=== PATIENT | male | born 1935 | race Caucasian/White ===

== ENCOUNTER → 2017-12-10 | Outpatient (CLI) | payer OTHER ==
[~2017-12-10] MED LIST: AMLO5TAB4 PO; FINA5TAB11 PO; LORA2TAB95 PO; MECL-102 PO; TAMS0.4C34 PO; TERA2CAP4 PO
== END | disposition home or self-care (01) ==
LOC: RAD 09:07
DX: M79.89 Other specified soft tissue disorders (principal); R60.9 Edema, unspecified

== ENCOUNTER 2018-03-03 11:52 | Emergency (ER) | payer OTHER ==
[~2018-03-03] VITALS: Ht 172.7 cm; Wt 79.4 kg
[2018-03-03] MEDS ORDERED: NEOMY/BACITRA/POLYMYXIN B OINT UD PACKET TP ONE ×2 (12:13→12:15)
--- NOTE | 2018-03-03 12:25 | NUR ---
Patient discharged to home in stable conditon. Written and verbal after care instructions given. Patient verbalizes understanding of instructions.Pt left ER w/ steady gait.
[2018-03-03 12:26] VITALS: BP 144/78
== END 2018-03-03 12:27 | disposition home or self-care (01) ==
LOC: ER 11:52
DX: S90.821A Blister (nonthermal), right foot, initial encounter (principal); B35.3 Tinea pedis; I10 Essential (primary) hypertension; K21.9 Gastro-esophageal reflux disease without esophagitis; X58.XXXA Exposure to other specified factors, initial encounter; Y93.89 Activity, other specified; Y92.89 Other specified places as the place of occurrence of the external cause; Y99.8 Other external cause status
CPT/HCPCS: A4663

== ENCOUNTER 2018-05-22 08:47 | Emergency (ER) | payer OTHER ==
[~2018-05-22] VITALS: Ht 172.7 cm; Wt 75.7 kg
--- NOTE | 2018-05-22 09:20 | NUR ---
PT IS IN ROOM #2A. DR CERDA EVALUATED THE PT.
[2018-05-22 09:35] LABS: *BILIRUBIN,URIN 1+ (NEGATIVE); *BLOOD, URINE NEGATIVE (NEGATIVE); *CLARITY,URINE CLEAR (CLEAR); *COLOR,URINE YELLOW (YELLOW); *KETONES,URINE TRACE (NEGATIVE); *UROBILINOGEN,URINE 0.2 E.U./dl (NORMAL); LEUKOCYTE ESTERASE ,URINE NEGATIVE (NEGATIVE); NITRITE, URINE NEGATIVE (NEGATIVE); PH,URINE 8.5 (5.0-8.0); UGLUCOSE NEGATIVE (NEGATIVE)
[2018-05-22 09:40] LABS: RBC,URINE NONE SEEN /HPF (0-3); WBC,URINE 0-3 /HPF (0-3)
[2018-05-22 09:41] LABS: BACTERIA,URINE FEW /HPF (NONE SEEN); SQUAMOUS EPITHELIAL CELL,UR FEW /HPF (NONE SEEN); URINE AMORPHOUS PHOSPHATES MODERATE /HPF
--- NOTE | 2018-05-22 10:07 | NUR ---
PT WAS D/C'd TO HOME AFTER DR CERDA EVALUATION. D/C INSTRUCTIONS GIVEN TO THE PT.
[2018-05-22 10:08] VITALS: BP 145/78
== END 2018-05-22 10:09 | disposition home or self-care (01) ==
LOC: ER 08:47
DX: N40.0 Benign prostatic hyperplasia without lower urinary tract symptoms (principal); I10 Essential (primary) hypertension; K21.9 Gastro-esophageal reflux disease without esophagitis; F12.10 Cannabis abuse, uncomplicated; Z79.899 Other long term (current) drug therapy
CPT/HCPCS: A4663

== ENCOUNTER 2018-08-14 12:32 | Emergency (ER) | payer OTHER ==
[~2018-08-14] VITALS: Ht 172.7 cm; Wt 74.8 kg
--- NOTE | 2018-08-14 12:52 | NUR ---
PATIENT BEING SEEN BY DOCTOR SUSAN.
--- NOTE | 2018-08-14 12:58 | NUR ---
PATIENT SAYS THERE IS PAIN ON RIGHT RIB CAGE FROM THE HANDLE OF CAR DOOR HITTING HIM.
[2018-08-14] MEDS ORDERED: IBUPROFEN 800 MG TABLET PO ONE (13:00)
[2018-08-14] MEDS ORDERED: IBUPROFEN 800 MG TABLET ONE (13:14)
[2018-08-14 13:22] LABS: CARBON DIOXIDE 28 mmol/L (21-32); CHLORIDE 102 mmol/L (98-107); GLUCOSE 94 mg/dL (74-106); POTASSIUM 3.9 mmol/L (3.5-5.1); UREA NITROGEN, BLOOD 20 mg/dL (7-18)
--- NOTE | 2018-08-14 13:23 | NUR ---
PATIENT PICKED UP TO GO TO RADIOLOGY DEPARTMENT.
[2018-08-14 13:29] LABS: ALANINE AMINOTRANSFERASE 16 U/L (16-63); ALKALINE PHOSPHATASE 78 U/L (50-136); ASPARTATE AMINOTRANSFERASE 9 U/L (15-37); BASOPHILS # (AUTO) 0.1 K/uL (0.0-8.0); BASOPHILS % (AUTO) 1.1 % (0.0-2.0); BILIRUBIN,DIRECT 0.2 mg/dL (0.0-0.2); BILIRUBIN,TOTAL 0.5 mg/dL (0.2-1.0); EOSINOPHILS # (AUTO) 0.2 K/uL (0.0-0.7); EOSINOPHILS % (AUTO) 2.7 % (0.0-7.0); HEMATOCRIT 42.6 % (36.7-47.1); HEMOGLOBIN 14.5 g/dL (12.5-16.3); LIPASE 103 U/L (73-393); LYMPHOCYTES # (AUTO) 1.3 K/uL (20.0-40.0); MEAN CORPUSCULAR HEMOGLOBIN 29.4 uug (23.8-33.4); MEAN CORPUSCULAR HGB CONC 34 g/dL (32.5-36.3); MEAN CORPUSCULAR VOLUME 86.8 fL (73.0-96.2); MONOCYTES # (AUTO) 0.7 K/uL (2.0-10.0); MONOCYTES % (AUTO) 9.5 % (0.0-11.0); NEUTROPHILS # (AUTO) 4.8 K/uL (1.8-8.9); NEUTROPHILS % (AUTO) 68.7 % (38.5-71.5); RED BLOOD CELL COUNT(AUTO) 4.91 MIL/uL (4.06-5.63); TOTAL PROTEIN, SERUM 6.2 g/dL (6.4-8.2)
[2018-08-14 13:31] LABS: PLATELET COUNT (AUTO) 169 K/uL (152-348)
--- NOTE | 2018-08-14 14:09 | NUR ---
COPY OF CT SCAN GIVEN TO PATIENT TO TAKE TO HIS PRIMARY DOCTOR. DOCTOR SUSAN SPOKE TO PATIENT REGARDING RESULTS AND PATIENT GIVEN DISCHARGE INSTRUCTIONS AND SIGNED. DAUGHTER AT BEDSIDE WELL .
== END 2018-08-14 14:18 | disposition home or self-care (01) ==
LOC: ER 12:32
DX: R07.89 Other chest pain (principal); I10 Essential (primary) hypertension; K21.9 Gastro-esophageal reflux disease without esophagitis; Z79.899 Other long term (current) drug therapy
CPT/HCPCS: 36415; 70030-TC; 71250; 83690; 85025; 93005; A4663

== ENCOUNTER 2018-09-20 14:56 | Emergency (ER) | payer OTHER ==
[~2018-09-20] VITALS: Ht 172.7 cm; Wt 63.5 kg
--- NOTE | 2018-09-20 15:11 | NUR ---
Patient discharged to home in stable conditon. Written and verbal after care instructions given to patient. Patient verbalizes understanding of instructions.
== END 2018-09-20 15:12 | disposition home or self-care (01) ==
LOC: ER 14:57
DX: H10.9 Unspecified conjunctivitis (principal); I10 Essential (primary) hypertension; K21.9 Gastro-esophageal reflux disease without esophagitis; Z79.899 Other long term (current) drug therapy
CPT/HCPCS: A4663

== ENCOUNTER 2018-10-27 10:47 | Emergency (ER) | payer OTHER ==
[~2018-10-27] VITALS: Ht 172.7 cm; Wt 54.4 kg
--- NOTE | 2018-10-27 11:12 | NUR ---
Dr lyman at the bedside for MSE.
--- NOTE | 2018-10-27 11:19 | NUR ---
Patient discharged to home in stable conditon. Written and verbal after care instructions given. Patient verbalizes understanding of instructions.
[2018-10-27 11:20] VITALS: BP 145/70
== END 2018-10-27 11:22 | disposition home or self-care (01) ==
LOC: ER 10:47
DX: S91.301A Unspecified open wound, right foot, initial encounter (principal); L08.9 Local infection of the skin and subcutaneous tissue, unspecified; I10 Essential (primary) hypertension; K21.9 Gastro-esophageal reflux disease without esophagitis; Z79.899 Other long term (current) drug therapy; X58.XXXA Exposure to other specified factors, initial encounter; Y93.89 Activity, other specified; Y92.89 Other specified places as the place of occurrence of the external cause; Y99.8 Other external cause status
CPT/HCPCS: A4663

== ENCOUNTER 2018-12-12 09:35 | Emergency (ER) | payer OTHER ==
[~2018-12-12] VITALS: Ht 185.4 cm; Wt 80.3 kg
--- NOTE | 2018-12-12 11:00 | NUR ---
PATIENT WAS MSE BY DR DAVIS IN ROOM 05A.
--- NOTE | 2018-12-12 11:08 | NUR ---
Patient discharged to home in stable conditon. Written and verbal after care instructions given. Patient verbalizes understanding of instructions.
[2018-12-12 11:12] VITALS: BP 145/81
== END 2018-12-12 11:16 | disposition home or self-care (01) ==
LOC: ER 09:35
DX: L98.9 Disorder of the skin and subcutaneous tissue, unspecified (principal); M47.892 Other spondylosis, cervical region; I10 Essential (primary) hypertension; K21.9 Gastro-esophageal reflux disease without esophagitis; Z79.899 Other long term (current) drug therapy
CPT/HCPCS: A4663

== ENCOUNTER 2020-07-10 10:57 | Inpatient (IN) | payer OTHER ==
[~2020-07-10] VITALS: Ht 175.3 cm; Wt 84.4 kg
[~2020-07-10 10:57] MED LIST changes: -MECL-102 PO; +MECL-159 PO
--- NOTE | 2020-07-10 10:57 | NUR ---
PT WALKED INTO ER CO LLE EDEMA/PAIN AND LEFT HIP PAIN, PT DENIES ANY TRAUMA. PT AMBULATORY AT HOME. HX OF SKIN GRAFT FROM LLE TO THE LEFT HEEL 3 YRS AGO AT [facility], SECONDARY TO SKIN CANCER PER PT. PT A-FIB WITH RVR ON MONITOR, DENEIS ANY CP OR PALPITATION OR SOB. PT ALSO DENEIS ANY HX OF CARDIAC ISSUES, EXCEPT ONE TIME THAT HIS OWN PMD, DR. VANG, TOLD HIM THAT HE HAS RAPID HEART RATE YEARS AGO.
--- NOTE | 2020-07-10 11:29 | NUR ---
PT'S DAUGHTER INSTRUCTED TO BRING LIST OF PT MEDS AND DOSAGES PHI. PT UNABLE TO RECALL HOME MEDS.
[2020-07-10] MEDS ORDERED: IV NORMAL SALINE 500 ML BAG IV ONE (11:30)
[2020-07-10] MEDS ORDERED: DILTIAZEM HCL 25 MG IV IV ONE (11:30)
[2020-07-10] MEDS ORDERED: DILTIAZEM HCL 25 MG IV ONE (11:31)
[2020-07-10 11:48] LABS: BASOPHILS # (AUTO) 0.1 K/uL (0.0-8.0); BASOPHILS % (AUTO) 1.3 % (0.0-2.0); EOSINOPHILS # (AUTO) 0.1 K/uL (0.0-0.7); EOSINOPHILS % (AUTO) 2.2 % (0.0-7.0); HEMATOCRIT 41.2 % (36.7-47.1); HEMOGLOBIN 13.4 g/dL (12.5-16.3); LYMPHOCYTES # (AUTO) 0.9 K/uL (20.0-40.0); LYMPHOCYTES % (AUTO) 14.7 % (20.5-51.5); MEAN CORPUSCULAR HEMOGLOBIN 25.7 uug (23.8-33.4); MEAN CORPUSCULAR HGB CONC 33 g/dL (32.5-36.3); MEAN CORPUSCULAR VOLUME 78.6 fL (73.0-96.2); MONOCYTES # (AUTO) 0.5 K/uL (2.0-10.0); MONOCYTES % (AUTO) 8.9 % (0.0-11.0); NEUTROPHILS # (AUTO) 4.3 K/uL (1.8-8.9); NEUTROPHILS % (AUTO) 72.9 % (38.5-71.5); PLATELET COUNT (AUTO) 271 K/uL (152-348); RED BLOOD CELL COUNT(AUTO) 5.24 MIL/uL (4.06-5.63); WHITE BLOOD COUNT (AUTO) 5.9 K/uL (3.6-10.2)
[2020-07-10 11:59] LABS: CREATININE 0.9 mg/dL (0.6-1.3)
[2020-07-10 12:01] LABS: POTASSIUM 5.1 mmol/L (3.5-5.1)
[2020-07-10 12:05] LABS: BILIRUBIN,DIRECT 0.1 mg/dL (0.0-0.2); BILIRUBIN,TOTAL 0.7 mg/dL (0.2-1.0); TOTAL PROTEIN, SERUM 6.3 g/dL (6.4-8.2)
[2020-07-10] MEDS ORDERED: DILTIAZEM HCL IV 125 MG in IV DEXTROSE 5% 100 ML IV ONE (12:15)
--- NOTE | 2020-07-10 12:30 | NUR ---
PT HAD LUNCH WITH [facility].
[2020-07-10] MEDS ORDERED: ALLO100T PO (13:27)
[2020-07-10] MEDS ORDERED: MELO-105 PO (13:27)
[2020-07-10] MEDS ORDERED: ROPI0.5T4 PO ×2 (13:27→15:03)
[2020-07-10] MEDS ORDERED: CHOL200010 PEG (13:30)
[2020-07-10] MEDS ORDERED: RIVA10TA PO (13:30)
--- NOTE | 2020-07-10 13:30 | NUR ---
PT CO CHRONIC LEFT HIP/THIGH PAIN REQUESTING PAIN MED, MD NOTIFIED.
[2020-07-10] MEDS ORDERED: ONDANSETRON 4 MG/2 ML VIAL IV ONE (13:45)
[2020-07-10] MEDS ORDERED: HYDROMORPHONE 1 MG/1 ML DISP.SYRIN IV ONE (13:45)
[2020-07-10] MEDS ORDERED: ONDANSETRON 4 MG/2 ML VIAL ONE (13:56)
[2020-07-10] MEDS ORDERED: HYDROMORPHONE 1 MG/1 ML DISP.SYRIN ONE (13:56)
[2020-07-10] MEDS ORDERED: ESCI10TA PO (14:00)
[2020-07-10] MEDS ORDERED: LEVO100T10 PO (14:00)
--- NOTE | 2020-07-10 14:20 | NUR ---
transfered pt to floor instable condition.
--- NOTE | 2020-07-10 14:30 | NUR ---
Admitted patient from emergency department with the admitting diagnosis of A-fib with RVR. Patient is alert and oriented x 3, pleasant and cooperative upon admission , Farsi speaking but can understand a little Dominican, denies of any pain. Patient has past history of rapid heart rate, vertigo, chronic back pain, spondylitis, skin cancer. IV access on the left wrist. Patient on Cardizem drip on 1 mg/hr. Seen and examined by Vivek Heard RETAIL REPRESENTATIVE at bedside and order for Lasix one time dose IV. Swollen right lower leg noted. Urine sample collected. Admission protocol rendered. Still A-fib on monitor.
[2020-07-10] MEDS ORDERED: ACETAMINOPHEN 325 MG TABLET PO PRN (15:15)
[2020-07-10] MEDS ORDERED: ONDANSETRON 4 MG/2 ML VIAL IV PRN (15:15)
[2020-07-10] MEDS ORDERED: MORPHINE SULFATE 2 MG/1 ML DISP.SYRIN IV PRN (15:15)
[2020-07-10] MEDS ORDERED: Z GUARD REMEDY PASTE 57 GM TUBE TOP PRN (15:15)
[2020-07-10] MEDS ORDERED: DILTIAZEM HCL IV 125 MG in IV NORMAL SALINE 100 ML IV PRN (15:15)
[2020-07-10] MEDS ORDERED: MAGNESIUM HYDROXIDE 30 ML LIQUID UDC PO PRN (15:15)
[2020-07-10 15:37] VITALS: BP 125/66
[2020-07-10] MEDS ORDERED: FUROSEMIDE 40 MG/4 ML VIAL IV ONE (16:00)
[2020-07-10 17:29] LABS: *BILIRUBIN,URIN NEGATIVE (NEGATIVE); *BLOOD, URINE NEGATIVE (NEGATIVE); *CLARITY,URINE CLEAR (CLEAR); *COLOR,URINE LIGHT YELLOW (YELLOW); *KETONES,URINE NEGATIVE (NEGATIVE); *UROBILINOGEN,URINE 0.2 E.U./dl (NORMAL); LEUKOCYTE ESTERASE ,URINE NEGATIVE (NEGATIVE); NITRITE, URINE NEGATIVE (NEGATIVE); UGLUCOSE NEGATIVE (NEGATIVE)
[2020-07-10 20:00] VITALS: BP 109/65
--- NOTE | 2020-07-10 20:00 | NUR ---
Received patient sitting in the chair. AAOx4. In no acute distress. Denies any pain or SOB. IV site on left hand intact and patent. Cardizem drip infusing at 5mg/hr. A fib. on tele at 100/min. Needs assessed and attended to. Safety measure initiated and call bruno within reached. Continue to monitor.
[2020-07-10] MEDS: TERAZOSIN 1 MG CAPSULE PO SCH (20:07)
[2020-07-10] MEDS: TEMAZEPAM 15 MG CAPSULE PO PRN (20:07)
[2020-07-10 20:37] VITALS: BP 109/65
[2020-07-10] MEDS: HYDROCODONE/APAP 5-325MG TABLET PO PRN (23:41)
[2020-07-11] VITALS: BP 118/75
--- NOTE | 2020-07-11 | NUR ---
Pt asleep at this time, but easily arouse to verbal stimuli. [place] 5 325mg 1 tab PO given for complain of right thigh pain. Remains A fib on tele at 104/min. Cardizem drip infusing at 5mg/hr. Denies any SOB. Continue to monitor.
[2020-07-11 00:22] VITALS: BP 118/75
[2020-07-11 04:27] VITALS: BP 99/50
--- NOTE | 2020-07-11 06:15 | NUR ---
Pt slept well last night. No further complain of pain on right thigh. On continuos Cardizem drip at 5mg/hr. A. Fib on tele at 101/min. Denies any chest pain or SOB. Needs attended to and met/ Safety measure maintained and call bruno within reached.
[2020-07-11 07:06] LABS: BASOPHILS % (AUTO) 0.7 % (0.0-2.0); EOSINOPHILS # (AUTO) 0.2 K/uL (0.0-0.7); EOSINOPHILS % (AUTO) 2.9 % (0.0-7.0); HEMATOCRIT 34.1 % (36.7-47.1); HEMOGLOBIN 11.1 g/dL (12.5-16.3); LYMPHOCYTES % (AUTO) 17.7 % (20.5-51.5); MEAN CORPUSCULAR HGB CONC 33 g/dL (32.5-36.3); MEAN CORPUSCULAR VOLUME 79.5 fL (73.0-96.2); MONOCYTES # (AUTO) 0.7 K/uL (2.0-10.0); MONOCYTES % (AUTO) 12.7 % (0.0-11.0); NEUTROPHILS # (AUTO) 3.6 K/uL (1.8-8.9); PLATELET COUNT (AUTO) 230 K/uL (152-348); RED BLOOD CELL COUNT(AUTO) 4.29 MIL/uL (4.06-5.63); WHITE BLOOD COUNT (AUTO) 5.4 K/uL (3.6-10.2)
[2020-07-11 07:18] LABS: BILIRUBIN,TOTAL 0.5 mg/dL (0.2-1.0); CREATININE 1.1 mg/dL (0.6-1.3); PHOSPHOROUS 4.3 mg/dL (2.5-4.9); POTASSIUM 3.9 mmol/L (3.5-5.1); TOTAL PROTEIN, SERUM 5.2 g/dL (6.4-8.2)
[2020-07-11] MEDS: LEVOTHYROXINE SODIUM 100 MCG TABLET PO SCH (07:21)
[2020-07-11 07:30] LABS: THYROID STIMULATING HORMONE 3.287 mIU/mL (0.358-3.740)
[2020-07-11 08:00] VITALS: BP 100/55
[2020-07-11] MEDS: ALLOPURINOL 100 MG TABLET PO SCH (08:45)
[2020-07-11] MEDS: FINASTERIDE 5 MG TABLET PO SCH (08:45)
[2020-07-11] MEDS: CHOLECALCIFEROL 1,000 UNIT TABLET PEG SCH (08:45)
[2020-07-11] MEDS: ESCITALOPRAM OXALATE 10 MG TABLET PO SCH (08:45)
[2020-07-11] MEDS: HYDROCODONE/APAP 5-325MG TABLET PO PRN (08:47)
[2020-07-11] MEDS ORDERED: MELOXICAM 7.5 MG TABLET PO SCH (09:00)
[2020-07-11] MEDS ORDERED: AMLODIPINE 5 MG TABLET PO SCH ×2 (09:00)
--- NOTE | 2020-07-11 09:00 | NUR ---
Patient in bed, alert and verbally responsive. Cooperative upon assessment on oxygen via NC at 2 L as ordered saturating at 97%.
[2020-07-11] MEDS: DILTIAZEM HCL CD 120 MG CAP.SR.24H PO SCH (10:31)
[2020-07-11] MEDS ORDERED: FUROSEMIDE 20 MG/2 ML VIAL IV ONE (10:45)
--- NOTE | 2020-07-11 12:00 | NUR ---
Discontinue Cardizem drip 5mg/hr per MD order and patient started on Cardizem 120mg PO. Seen and examined by Dr. Guthrie. Covid PCR result is negative.
[2020-07-11] MEDS: ropiniROLE 0.5 MG TABLET PO SCH ×2 (12:03→16:30)
[2020-07-11 15:13] VITALS: BP 97/45
[2020-07-11] MEDS: LORAZEPAM 1 MG TABLET PO PRN (16:30)
[2020-07-11] MEDS: RIVAROXABAN 10 MG TABLET PO SCH (17:30)
[2020-07-11] MEDS ORDERED: RIVAROXABAN 10 MG TABLET PO SCH (18:00)
[2020-07-11 20:30] VITALS: BP 100/47
[2020-07-11] MEDS: TERAZOSIN 1 MG CAPSULE PO SCH (20:36)
[2020-07-12 00:15] VITALS: BP 103/56
[2020-07-12 04:33] VITALS: BP 126/71
[2020-07-12] MEDS: LEVOTHYROXINE SODIUM 100 MCG TABLET PO SCH (06:24)
--- NOTE | 2020-07-12 06:33 | NUR ---
Pt stable throughout the night. Denies CP/SOB. On 2L, tolerating well. Pt on tele monitor, ST 114. Comfort care and needs attended. Safety measures in place. Will endorse to oncoming nurse.
[2020-07-12 07:00] LABS: BASOPHILS % (AUTO) 0.7 % (0.0-2.0); EOSINOPHILS # (AUTO) 0.1 K/uL (0.0-0.7); EOSINOPHILS % (AUTO) 1.9 % (0.0-7.0); HEMATOCRIT 35.7 % (36.7-47.1); HEMOGLOBIN 11.4 g/dL (12.5-16.3); LYMPHOCYTES # (AUTO) 0.7 K/uL (20.0-40.0); LYMPHOCYTES % (AUTO) 14.6 % (20.5-51.5); MEAN CORPUSCULAR HEMOGLOBIN 25.2 uug (23.8-33.4); MEAN CORPUSCULAR HGB CONC 32 g/dL (32.5-36.3); MONOCYTES # (AUTO) 0.5 K/uL (2.0-10.0); MONOCYTES % (AUTO) 9.2 % (0.0-11.0); NEUTROPHILS # (AUTO) 3.8 K/uL (1.8-8.9); NEUTROPHILS % (AUTO) 73.6 % (38.5-71.5); PLATELET COUNT (AUTO) 200 K/uL (152-348); RED BLOOD CELL COUNT(AUTO) 4.52 MIL/uL (4.06-5.63); WHITE BLOOD COUNT (AUTO) 5.1 K/uL (3.6-10.2)
[2020-07-12 07:06] LABS: CREATININE 0.8 mg/dL (0.6-1.3)
[2020-07-12 07:55] VITALS: BP 121/65
--- NOTE | 2020-07-12 07:59 | NUR ---
Attempted to taper his oxygen. Pt desaturated to 88% on r/a at rest. Put pt back on 2 lit n/c with sat of 96%.
--- NOTE | 2020-07-12 08:30 | NUR ---
Discussed with pt and MAINTENANCE ADVISOR to limit fluid. Aspiration and fall precaution implemented. IV on right hand intact and flushed without resistance. Pt denies any c/o pain. Pt c/o constipation. Dr torres to order Lactulose.
[2020-07-12] MEDS: ropiniROLE 0.5 MG TABLET PO SCH ×3 (08:34→17:16)
[2020-07-12] MEDS: FINASTERIDE 5 MG TABLET PO SCH (08:34)
[2020-07-12] MEDS: CHOLECALCIFEROL 1,000 UNIT TABLET PEG SCH (08:34)
[2020-07-12] MEDS: ESCITALOPRAM OXALATE 10 MG TABLET PO SCH (08:34)
[2020-07-12] MEDS: ALLOPURINOL 100 MG TABLET PO SCH (08:35)
[2020-07-12] MEDS: DILTIAZEM HCL CD 120 MG CAP.SR.24H PO SCH (08:35)
[2020-07-12] MEDS ORDERED: FUROSEMIDE 20 MG/2 ML VIAL IV ONE (09:00)
[2020-07-12] MEDS ORDERED: LACTULOSE 20 G/30 ML LIQUID UDC PO ONE (09:00)
[2020-07-12 11:22] VITALS: BP 123/63
--- NOTE | 2020-07-12 14:00 | NUR ---
Pt had large bm. Lactulose effective.
--- NOTE | 2020-07-12 14:44 | NUR ---
Dr sheridan saw pt earlier. new orders received and carried out. Pt tolerated Lower extremity CT awaiting result. Right leg edema +2, left leg +1.
[2020-07-12 15:21] VITALS: BP 124/52
--- NOTE | 2020-07-12 16:07 | NUR ---
From face sheets contact. Dialed [phone] for rickey torres -spouse to get for consent for possible EGD/ COLONOSCOPY with [employer] phone laborer car barn # [phone] Camilla. No answering machine and nobody answered phone. Attempted to call for Zunilda [facility] notes [phone] no answer and no answering machine available. Attempted to call [phone] Diana lang's cousin spoke with cousins left message to call back at [phone] and that were trying to get consent. Awaiting call back. Addendum: 07/12/20 at 0973 by CONY MCQUEEN RN WRONG PATIENT
[2020-07-12] MEDS: RIVAROXABAN 10 MG TABLET PO SCH (17:17)
--- NOTE | 2020-07-12 20:00 | NUR ---
Received patient lying in bed. AAOx4. In no acute distress. Denies any pain or SOB. IV site on left hand and right wrist intact and patent. A fib. on tele at 84/min. Safety measure initiated and call bruno within reached.
[2020-07-12 20:23] VITALS: BP 94/42
[2020-07-12] MEDS: TERAZOSIN 1 MG CAPSULE PO SCH (21:00)
[2020-07-13 00:28] VITALS: BP 127/65
[2020-07-13 04:45] VITALS: BP 129/65
[2020-07-13 06:08] LABS: ABG BASE EXCESS 3.2 mmol/L; ABG HCO3 28.6 mmol/L; ABG PCO2 47.2 mmHg (35.0-45.0); ABG PH 7.401 (7.350-7.450); ABG SITE RIGHT RADIAL; ABG TOTAL HEMOGLOBIN 11.8 G/dL (13.5-18.0); COHb 1.2 % (0.5-1.5); MetHb 0.1 % (0.0-1.5); O2Hb 88.6 % (94.0-97.0); VENT MODE ROOM AIR
--- NOTE | 2020-07-13 06:12 | NUR ---
ABG WAS DONE ON ROOM AIR. Parrish LONG RCP Addendum: 07/13/20 at 0613 by NILAY LONG RT Amended: Links added.
--- NOTE | 2020-07-13 06:18 | NUR ---
Patient slept well last night. Denies any pain or SOB. O2 at 2LPM via NC in place. O2 sat bet 91-97%. Patient de saturate to 88% without O2 in place. Controlled A. fib on tele at 96/min. NPO status. Will have CT abd. today. Needs attended to and met. Safety measure maintained and call bruno within reached.
[2020-07-13] MEDS: LEVOTHYROXINE SODIUM 100 MCG TABLET PO SCH (07:00)
[2020-07-13 07:30] LABS: BASOPHILS % (AUTO) 0.5 % (0.0-2.0); EOSINOPHILS # (AUTO) 0.1 K/uL (0.0-0.7); EOSINOPHILS % (AUTO) 2.1 % (0.0-7.0); HEMATOCRIT 33.9 % (36.7-47.1); LYMPHOCYTES # (AUTO) 0.8 K/uL (20.0-40.0); LYMPHOCYTES % (AUTO) 15.2 % (20.5-51.5); MEAN CORPUSCULAR HEMOGLOBIN 25.6 uug (23.8-33.4); MEAN CORPUSCULAR HGB CONC 33 g/dL (32.5-36.3); MEAN CORPUSCULAR VOLUME 78.9 fL (73.0-96.2); MONOCYTES # (AUTO) 0.5 K/uL (2.0-10.0); MONOCYTES % (AUTO) 8.9 % (0.0-11.0); NEUTROPHILS # (AUTO) 3.8 K/uL (1.8-8.9); NEUTROPHILS % (AUTO) 73.3 % (38.5-71.5); PLATELET COUNT (AUTO) 221 K/uL (152-348); RED BLOOD CELL COUNT(AUTO) 4.29 MIL/uL (4.06-5.63); WHITE BLOOD COUNT (AUTO) 5.2 K/uL (3.6-10.2)
[2020-07-13 07:34] LABS: CREATININE 0.8 mg/dL (0.6-1.3); MAGNESIUM 2.1 mg/dL (1.8-2.4); PHOSPHOROUS 3.4 mg/dL (2.5-4.9); POTASSIUM 3.6 mmol/L (3.5-5.1)
--- NOTE | 2020-07-13 08:00 | NUR ---
DAUGHTER MARQUEZ NOTIFIED OF NEED FOR CONSENT FOR CT ABDOMEN WITH CONTRAST. PHONE CONSENT GIVEN ON THE PHONE
[2020-07-13] MEDS: CHOLECALCIFEROL 1,000 UNIT TABLET PEG SCH (08:01)
[2020-07-13] MEDS: ESCITALOPRAM OXALATE 10 MG TABLET PO SCH (08:01)
[2020-07-13] MEDS: ropiniROLE 0.5 MG TABLET PO SCH ×3 (08:01→17:02)
[2020-07-13] MEDS: ALLOPURINOL 100 MG TABLET PO SCH (08:06)
[2020-07-13] MEDS: FINASTERIDE 5 MG TABLET PO SCH (08:06)
[2020-07-13] MEDS: DILTIAZEM HCL CD 120 MG CAP.SR.24H PO SCH (08:06)
[2020-07-13] MEDS: LORAZEPAM 1 MG TABLET PO PRN ×2 (08:25→17:30)
[2020-07-13] MEDS ORDERED: SWABABLE VALVE TRANSFER SET EA MC ONE ×2 (08:30→17:50)
[2020-07-13] MEDS ORDERED: IV NORMAL SALINE 250 ML IV ONE ×2 (08:31→17:51)
[2020-07-13] MEDS ORDERED: IOHEXOL 300MG/ML 100 ML INFUS..BTL ONE ×2 (08:31→17:51)
--- NOTE | 2020-07-13 08:53 | NUR ---
down to nuclear meds for CT ABDOMEN WITH CONTRAST
[2020-07-13] MEDS ORDERED: POTASSIUM CHLORIDE 20 MEQ POWDER PACKET PO ONE (09:15)
[2020-07-13] MEDS ORDERED: FUROSEMIDE 20 MG/2 ML VIAL IV ONE (09:45)
[2020-07-13] MEDS ORDERED: IV NS 1000 ML 1,000 ML IV ONE (10:30)
--- NOTE | 2020-07-13 12:00 | NUR ---
Patient was seen by Hospitalist for Nephro, Cardio, and Pulmo. See notes.
--- NOTE | 2020-07-13 15:59 | NUR ---
Patient kept on NPO for CT Angio. Patient remains controlled Afib. Continue oxygen with 2 LPM via Nasal Cannula saturating at 96%. Closely monitored for fall.
[2020-07-13 16:27] VITALS: BP 126/60
[2020-07-13] MEDS ORDERED: IOHEXOL 350 100 ML INFUS..BTL ONE (17:51)
[2020-07-13 18:28] LABS: IRON, SERUM 14 ug/dL (50-175)
[2020-07-13 18:55] LABS: FERRITIN 37 ng/mL (26-388); LACTATE DEHYDROGENASE 161 U/L (85-227)
[2020-07-13 20:00] VITALS: BP 140/84
[2020-07-13] MEDS: TEMAZEPAM 15 MG CAPSULE PO PRN (20:01)
[2020-07-13] MEDS: ENOXAPARIN SODIUM 80 MG/0.8 ML DISP.SYRIN SQ SCH (20:02)
[2020-07-13] MEDS: TERAZOSIN 1 MG CAPSULE PO SCH (20:08)
[2020-07-14] VITALS: BP 128/80
[2020-07-14 04:00] VITALS: BP 129/76
[2020-07-14] MEDS: LEVOTHYROXINE SODIUM 100 MCG TABLET PO SCH (06:09)
[2020-07-14 06:23] LABS: BASOPHILS % (AUTO) 0.7 % (0.0-2.0); EOSINOPHILS # (AUTO) 0.1 K/uL (0.0-0.7); EOSINOPHILS % (AUTO) 2.2 % (0.0-7.0); HEMOGLOBIN 11.9 g/dL (12.5-16.3); LYMPHOCYTES # (AUTO) 0.6 K/uL (20.0-40.0); LYMPHOCYTES % (AUTO) 13.6 % (20.5-51.5); MEAN CORPUSCULAR HEMOGLOBIN 25.3 uug (23.8-33.4); MEAN CORPUSCULAR HGB CONC 32 g/dL (32.5-36.3); MEAN CORPUSCULAR VOLUME 78.5 fL (73.0-96.2); MONOCYTES # (AUTO) 0.4 K/uL (2.0-10.0); MONOCYTES % (AUTO) 10.4 % (0.0-11.0); NEUTROPHILS # (AUTO) 3.1 K/uL (1.8-8.9); NEUTROPHILS % (AUTO) 73.1 % (38.5-71.5); PLATELET COUNT (AUTO) 216 K/uL (152-348); RED BLOOD CELL COUNT(AUTO) 4.71 MIL/uL (4.06-5.63); WHITE BLOOD COUNT (AUTO) 4.3 K/uL (3.6-10.2)
[2020-07-14 06:51] LABS: CREATININE 0.7 mg/dL (0.6-1.3); MAGNESIUM 2.1 mg/dL (1.8-2.4); POTASSIUM 3.7 mmol/L (3.5-5.1)
--- NOTE | 2020-07-14 06:54 | NUR ---
Pt slept well overnight; pt is afib rvr on activity, otherwise rate in the 90s and low 100s when asleep; continue to monitor; continue plan of care.
--- NOTE | 2020-07-14 07:22 | NUR ---
Received patient in bed, resting. Oxygen is at 2 LPM. Controlled AFib on monitor. Will continue to monitor as a telemetry status.
--- NOTE | 2020-07-14 07:30 | NUR ---
Patient received in bed sleeping. Patient is comfortable, no pain noted. On monitor patient on controlled AFib at 91 BPM. Patient is comfortable on oxygen at 2 LPM. Will continue to monitor.
[2020-07-14] MEDS ORDERED: ACETAzolamide 250 MG TABLET PO ONE (07:45)
[2020-07-14] MEDS ORDERED: FUROSEMIDE 20 MG/2 ML VIAL IV ONE (08:00)
[2020-07-14] MEDS: CHOLECALCIFEROL 1,000 UNIT TABLET PEG SCH (08:14)
[2020-07-14] MEDS: ropiniROLE 0.5 MG TABLET PO SCH ×3 (08:14→17:33)
[2020-07-14] MEDS: FINASTERIDE 5 MG TABLET PO SCH (08:14)
[2020-07-14] MEDS: ESCITALOPRAM OXALATE 10 MG TABLET PO SCH (08:15)
[2020-07-14] MEDS: ALLOPURINOL 100 MG TABLET PO SCH (08:15)
[2020-07-14] MEDS: ENOXAPARIN SODIUM 80 MG/0.8 ML DISP.SYRIN SQ SCH (08:16)
[2020-07-14] MEDS: DILTIAZEM HCL CD 120 MG CAP.SR.24H PO SCH (08:21)
[2020-07-14 08:38] VITALS: BP 153/83
[2020-07-14] MEDS ORDERED: POTASSIUM CHLORIDE 20 MEQ TAB.PRT.SR PO ONE (09:00)
[2020-07-14] MEDS: FERROUS SULFATE 325 MG TABEC PO SCH ×2 (13:22→20:46)
--- NOTE | 2020-07-14 14:00 | NUR ---
SEEN BY DR DENSON FOR FOLLOW-UP WITH ORDER FOR RETROPERITONEAL MASS BIOPSY IN AM. CONSENT SIGNED
[2020-07-14 15:53] VITALS: BP 123/71
[2020-07-14 17:49] LABS: *OCCULT BLOOD STOOL NEGATIVE (NEGATIVE)
[2020-07-14] MEDS: LORAZEPAM 1 MG TABLET PO PRN (18:48)
--- NOTE | 2020-07-14 19:07 | NUR ---
PATIENT VERY ANXIOUS AND WANTS TO GO HOME, NEEDS ATTENDED. MEDICATED WITH PRN MEDS. CLOSELY MONITORED
[2020-07-14] MEDS: TERAZOSIN 1 MG CAPSULE PO SCH (20:46)
[2020-07-14 22:23] VITALS: BP 128/78
[2020-07-14] MEDS: TEMAZEPAM 15 MG CAPSULE PO PRN (22:44)
[2020-07-15] VITALS: BP 133/62
[2020-07-15 04:00] VITALS: BP 149/82
--- NOTE | 2020-07-15 06:00 | NUR ---
Pt rested well in between care; pt is high fall risk; safety maintained; bed changed and now bed alarm on; needs attended; continue to monitor; continue plan of care.
[2020-07-15] MEDS: LEVOTHYROXINE SODIUM 100 MCG TABLET PO SCH (06:18)
[2020-07-15 06:30] LABS: BASOPHILS % (AUTO) 0.8 % (0.0-2.0); EOSINOPHILS # (AUTO) 0.1 K/uL (0.0-0.7); EOSINOPHILS % (AUTO) 2.3 % (0.0-7.0); HEMATOCRIT 38.6 % (36.7-47.1); HEMOGLOBIN 12.3 g/dL (12.5-16.3); LYMPHOCYTES # (AUTO) 0.7 K/uL (20.0-40.0); LYMPHOCYTES % (AUTO) 15.8 % (20.5-51.5); MEAN CORPUSCULAR HEMOGLOBIN 25.3 uug (23.8-33.4); MEAN CORPUSCULAR HGB CONC 32 g/dL (32.5-36.3); MEAN CORPUSCULAR VOLUME 79.7 fL (73.0-96.2); MONOCYTES # (AUTO) 0.4 K/uL (2.0-10.0); MONOCYTES % (AUTO) 10.1 % (0.0-11.0); NEUTROPHILS # (AUTO) 3.1 K/uL (1.8-8.9); PLATELET COUNT (AUTO) 225 K/uL (152-348); RED BLOOD CELL COUNT(AUTO) 4.85 MIL/uL (4.06-5.63); WHITE BLOOD COUNT (AUTO) 4.4 K/uL (3.6-10.2)
[2020-07-15 06:43] LABS: CREATININE 0.7 mg/dL (0.6-1.3); MAGNESIUM 2.3 mg/dL (1.8-2.4); PHOSPHOROUS 3.5 mg/dL (2.5-4.9); POTASSIUM 3.4 mmol/L (3.5-5.1)
--- NOTE | 2020-07-15 07:21 | NUR ---
Sleeping, appears comfortable. Tele Afib
[2020-07-15 08:00] VITALS: BP 99/40
[2020-07-15] MEDS ORDERED: POTASSIUM CHLORIDE 20 MEQ TAB.PRT.SR PO ONE (09:30)
--- NOTE | 2020-07-15 09:30 | NUR ---
Sponge bath given. Repositioned in bed comfortably. Placed on NPO, plan for moderate sedation with procedure
[2020-07-15] MEDS: CHOLECALCIFEROL 1,000 UNIT TABLET PEG SCH (09:35)
[2020-07-15] MEDS: FERROUS SULFATE 325 MG TABEC PO SCH ×2 (09:36→20:33)
[2020-07-15] MEDS: FINASTERIDE 5 MG TABLET PO SCH (09:36)
[2020-07-15] MEDS: ropiniROLE 0.5 MG TABLET PO SCH ×3 (09:36→17:45)
[2020-07-15] MEDS: ESCITALOPRAM OXALATE 10 MG TABLET PO SCH (09:36)
[2020-07-15] MEDS: ALLOPURINOL 100 MG TABLET PO SCH (09:36)
[2020-07-15] MEDS: DILTIAZEM HCL CD 120 MG CAP.SR.24H PO SCH (09:45)
[2020-07-15] MEDS ORDERED: NALOXONE 2 MG/2 ML SYRINGE IV PRN (10:15)
[2020-07-15] MEDS ORDERED: MIDAZOLAM HCL 10 MG/2 ML VIAL IV PRN (10:15)
[2020-07-15] MEDS ORDERED: FENTANYL CITRATE 250 MCG/5 ML AMPUL IV PRN (10:15)
[2020-07-15] MEDS ORDERED: FLUMAZENIL 0.5 MG/5 ML VIAL IV PRN (10:30)
--- NOTE | 2020-07-15 11:31 | NUR ---
Out of bed sitting on the chair, call light with in reach, instructed to call when assistance needed
[2020-07-15 11:48] VITALS: BP 141/80
[2020-07-15] MEDS ORDERED: LIDOCAINE HCL 1% 20 ML VIAL ONE (11:57)
--- NOTE | 2020-07-15 15:00 | NUR ---
To radiology by bed for CT guided retroperitoneal mass biopsy under moderate sedation
--- NOTE | 2020-07-15 17:30 | NUR ---
Back from recovery, S/P retroperitoneal mass biopsy, drowsy by easily aroused. Vital signs taken and recorded
--- NOTE | 2020-07-15 18:33 | NUR ---
Assisted with meal. Repositioned in bed comfortably.
[2020-07-15] MEDS: TERAZOSIN 1 MG CAPSULE PO SCH (20:35)
[2020-07-15 20:36] VITALS: BP 129/73
[2020-07-16 00:38] VITALS: BP 126/74
[2020-07-16 04:27] VITALS: BP 138/78
[2020-07-16] MEDS: LEVOTHYROXINE SODIUM 100 MCG TABLET PO SCH (06:02)
[2020-07-16 07:09] LABS: BASOPHILS % (AUTO) 0.7 % (0.0-2.0); EOSINOPHILS # (AUTO) 0.1 K/uL (0.0-0.7); EOSINOPHILS % (AUTO) 2.3 % (0.0-7.0); HEMATOCRIT 39.4 % (36.7-47.1); HEMOGLOBIN 12.7 g/dL (12.5-16.3); LYMPHOCYTES % (AUTO) 17.7 % (20.5-51.5); MEAN CORPUSCULAR HEMOGLOBIN 25.4 uug (23.8-33.4); MEAN CORPUSCULAR HGB CONC 32 g/dL (32.5-36.3); MONOCYTES # (AUTO) 0.6 K/uL (2.0-10.0); MONOCYTES % (AUTO) 10.3 % (0.0-11.0); NEUTROPHILS # (AUTO) 3.9 K/uL (1.8-8.9); PLATELET COUNT (AUTO) 260 K/uL (152-348); RED BLOOD CELL COUNT(AUTO) 4.99 MIL/uL (4.06-5.63); WHITE BLOOD COUNT (AUTO) 5.7 K/uL (3.6-10.2)
--- NOTE | 2020-07-16 07:15 | NUR ---
Received in bed, hob elevated. Breathing even and non labored. In no acute distress. RLE noted with edema. Skin is intact and leg is elevated as tolerated. Patient able to verbalized needs. Right hand iv site intact and patent. No s/sx of infiltration or phlebitis. Patient kept comfortable. Safety measures in place. Call light placed within reach. Will continue to monitor.
--- NOTE | 2020-07-16 07:19 | NUR ---
EOSR Patient rested well in between care; assisted with hygiene needs; safety maintained; bed alarm on; continue to monitor; continue plan of care.
[2020-07-16 07:25] LABS: MAGNESIUM 2.2 mg/dL (1.8-2.4); POTASSIUM 3.9 mmol/L (3.5-5.1)
[2020-07-16] MEDS: CHOLECALCIFEROL 1,000 UNIT TABLET PEG SCH (08:19)
[2020-07-16] MEDS: FINASTERIDE 5 MG TABLET PO SCH (08:19)
[2020-07-16] MEDS: ropiniROLE 0.5 MG TABLET PO SCH ×2 (08:19→12:29)
[2020-07-16] MEDS: ALLOPURINOL 100 MG TABLET PO SCH (08:19)
[2020-07-16] MEDS: FERROUS SULFATE 325 MG TABEC PO SCH (08:19)
[2020-07-16] MEDS: DILTIAZEM HCL CD 120 MG CAP.SR.24H PO SCH (08:20)
[2020-07-16] MEDS: ESCITALOPRAM OXALATE 10 MG TABLET PO SCH (08:20)
[2020-07-16] MEDS ORDERED: FUROSEMIDE 20 MG/2 ML VIAL IV ONE (09:30)
--- NOTE | 2020-07-16 10:35 | NUR ---
Seen and examined by Dr. Carrera with order to resume Lovenox 80mg sq q12hr noted and carried out.
--- NOTE | 2020-07-16 10:56 | NUR ---
Per Chencho Mathews NP, pato Lovenox. He will start him on Xarelto before discharge today. Radha at pharmacy made aware.
[2020-07-16] MEDS ORDERED: RIVAROXABAN 10 MG TABLET PO ONE (11:00)
--- NOTE | 2020-07-16 11:00 | NUR ---
Spoke to Constantine regarding patient's discharge to [facility] today, she said she was aware and will meet the patient at the rehab center. Patient also made aware.
[2020-07-16 11:35] VITALS: BP 143/71
--- NOTE | 2020-07-16 14:25 | NUR ---
Patient is picked up by [facility] for discharge to [facility]. Patient is alert and oriented. Denies pain. No sob. VSS. All belongings are inventoried, cell phone and keys are with the patient. IV removed. No bleeding noted. Patient left for [facility] in stable condition. Constantine is aware. Gave endorsement to dynamics ax technical architect that will meet him there. aware.
[2020-07-16] MEDS ORDERED: ENOXAPARIN SODIUM 80 MG/0.8 ML DISP.SYRIN SQ SCH (21:00)
[2020-07-19 15:08] LABS: AFP, TUMOR MARKER 1.5
[2020-07-19 15:09] LABS: CARBOHYDRATE ANTIGEN, 19-9 8
[2020-07-19 15:18] LABS: *IMMUNOFIXATION RESULT ABNORMAL
[2020-07-19 15:19] LABS: *IMMUNOGLOBULIN G, SERUM 781; IMMUNOGLOBULIN A, SERUM 210
[2020-07-19 15:20] LABS: IMMUNOGLOBULIN M, SERUM 78
[2020-07-19 15:22] LABS: ALBUMIN 2.6 LOW; ALPHA-1-GLOBULIN 0.3
[2020-07-19 15:25] LABS: ALPHA-2-GLOBULIN 0.9; BETA GLOBULIN 0.7
[2020-07-19 15:27] LABS: M-SPIKE 0.5 HIGH
[2020-07-19 15:28] LABS: A/G RATIO 0.9; GLOBULIN, TOTAL 2.9
== END 2020-07-16 14:25 | DRG 843 ==
LOC: ER 10:57 → TELE3 14:10 → TELE-TD3 14:45 → TELE3 07-11 16:31
PROVIDERS: ADMIT Nurse Practitioner Acute Care; ATTEND Nurse Practitioner Family
PROC: 0WBH3ZX Excision of Retroperitoneum, Percutaneous Approach, Diagnostic (ICD-10-PCS; principal; 2020-07-15)
DX: C48.0 Malignant neoplasm of retroperitoneum (principal); I50.33 Acute on chronic diastolic (congestive) heart failure; E87.3 Alkalosis; E44.0 Moderate protein-calorie malnutrition; D68.69 Other thrombophilia; N17.9 Acute kidney failure, unspecified; I48.0 Paroxysmal atrial fibrillation; Z85.828 Personal history of other malignant neoplasm of skin; E03.9 Hypothyroidism, unspecified; I11.0 Hypertensive heart disease with heart failure; G20 Parkinson's disease; Z20.822 Contact with and (suspected) exposure to COVID-19; E88.09 Other disorders of plasma-protein metabolism, not elsewhere classified; E87.6 Hypokalemia; F32.9 Major depressive disorder, single episode, unspecified; K21.9 Gastro-esophageal reflux disease without esophagitis; N40.0 Benign prostatic hyperplasia without lower urinary tract symptoms; Z85.820 Personal history of malignant melanoma of skin; I27.20 Pulmonary hypertension, unspecified; G89.29 Other chronic pain; D35.01 Benign neoplasm of right adrenal gland; D64.9 Anemia, unspecified; R73.9 Hyperglycemia, unspecified; M10.9 Gout, unspecified; M89.9 Disorder of bone, unspecified; R60.0 Localized edema; K76.89 Other specified diseases of liver
CPT/HCPCS: 36415; 36600; 70030-TC; 70470; 71045; 71275; 72192; 73700; 82105; 82378; 82784; 83550; 83605; 83615; 83690; 83735; 84100; 84155; 84165; 84443; 85025; 85610; 85730; 86140; 86301; 86334; 87086; 93005; 93307; A4663; G0378; J1170; J1650; J1940; J2250; J2405; J3010; J3490; J7030; J7040; J7050; J7060; J8499; Q9967; U0003